=== PATIENT | female | born 1955 | race Caucasian/White ===

== ENCOUNTER 2019-12-15 09:18 | Day surgery (SDC) | payer BC ==
[~2019-12-15] VITALS: Ht 165.1 cm; Wt 94.7 kg
[2019-12-15] MEDS ORDERED: VITAMIN C500 MG PO (09:40)
[2019-12-15] MEDS ORDERED: ZOCOR 20MG20 MG PO (09:40)
[2019-12-15] MEDS ORDERED: SYNTHROID0.075 MG/T PO (09:40)
[2019-12-15] MEDS ORDERED: MULTIPLE VITAMI1 TA5 PO (09:41)
[2019-12-15] MEDS ORDERED: AVALIDE 12.5 MG1 TA1 PO (09:41)
[2019-12-15 09:42] VITALS: BP 149/79; PULSE 90; TEMP 97.3
[2019-12-15] MEDS ORDERED: NORCO 325 MG-51 TAB PO (14:13)
[2019-12-15] MEDS ORDERED: ULTRAM 50MG TAB50 MG PO (14:13)
[2019-12-15] MEDS ORDERED: ZOFRAN 4MG T4 MG/TAB PO (14:14)
[2019-12-15 15:10] VITALS: BP 129/66; PULSE 75; TEMP 97.2
--- NOTE | 2019-12-15 15:10 | NUR ---
The patient arrived back to [place] [facility] from the recovery room at this time. The patint appears alert and oriented and denies any pain or nausea at this time. The patient's post operative vital signs were started at this time. The patient's foam tape dressing to her right shoulder appears clean, dry and intact with ice in place to the incision site. The patient has ice in place to her right shoulder at this time. Call light is within reach. The patient agrees to try some cranberry juice at this time. Will continue to monitor the patient.
[2019-12-15 15:25] VITALS: BP 129/73; PULSE 73
--- NOTE | 2019-12-15 15:25 | NUR ---
The patient appeared to tolerate the juice well and agrees to try to some toast and ice water at this time. The patient continues to deny any pain or nausea at this time. Call light remains within reach. Vital signs appear stable at this time. Will continue to monitor the patient.
[2019-12-15 15:40] VITALS: BP 128/75; PULSE 75
--- NOTE | 2019-12-15 15:40 | NUR ---
The patient appears to be tolerating the food and drink well at this time. Vital signs appear stable. Call light remains within reach. The patient denies any further needs. Will continue to monitor the patient.
[2019-12-15 15:55] VITALS: BP 139/78; PULSE 76
--- NOTE | 2019-12-15 15:55 | NUR ---
The patient was given some fresh ice water at this time. Vital signs appear stable. Call light remains within reach. Will continue to monitor the patient.
[2019-12-15 16:13] VITALS: BP 129/66; PULSE 75
--- NOTE | 2019-12-15 16:15 | NUR ---
The patient ambulated to the bathroom with the stand by assistance of one nurse and appeared to tolerate the activity well. The patient voided without difficulty and voices a desire to be discharged home.
--- NOTE | 2019-12-15 16:22 | NUR ---
The patient's IV to her left hand was removed and a pressure dressing was applied to the site. Discharge instrucitons were reviewed with the patient at this time. She verbalized understanding and has no questions for the nurse at this time. The nurse assisted the patient to get dressed and she appeared to tolerat the activity well.
--- NOTE | 2019-12-15 16:31 | NUR ---
The patient was escorted out via wheelchair to a private vehicle by [employer]. The patient's belongings and discharge paperwork were sent with her. The patient's family is present to drive her home.
== END 2019-12-15 16:31 | disposition home or self-care (01) ==
LOC: SDCO 09:18
DX: S46.011A Strain of muscle(s) and tendon(s) of the rotator cuff of right shoulder, initial encounter (principal); I10 Essential (primary) hypertension; E78.5 Hyperlipidemia, unspecified; E78.00 Pure hypercholesterolemia, unspecified; E03.9 Hypothyroidism, unspecified; X50.0XXA Overexertion from strenuous movement or load, initial encounter; Y93.16 Activity, rowing, canoeing, kayaking, rafting and tubing; Z79.899 Other long term (current) drug therapy; Z79.82 Long term (current) use of aspirin
CPT/HCPCS: A4619; C1713; J0171; J1100; J1885; J2250; J2405; J2704; J2795; J3010; J7120